=== PATIENT | male | born 1960 | race Caucasian/White ===

== ENCOUNTER 2019-05-20 14:14 | Emergency (ER) | payer BC ==
[2019-05-20 14:45] LABS: Urine Blood 3+ (NEG); Urine Glucose NEGATIVE (NEG); Urine Protein 2+ (NEG); Urine Specific Gravity 1.025 (1.005-1.030)
[2019-05-20 14:47] LABS: Absolute Lymphocytes (CBC) 2.2 K/uL (0.7-4.9); Basophils % 1.1 % (0-1.3); Hematocrit 43.8 % (39.6-49.0); Lymphocytes % 25.5 % (15.3-44.8); MPV 7.4 fL (7.6-11.3); RBC Red Blood Cell Count 4.67 M/uL (4.33-5.43)
[2019-05-20] MEDS ORDERED: ONDANSETRON 4 MG/2 ML VIAL ONE (14:49)
[2019-05-20] MEDS ORDERED: MORPHINE 4 MG/ML SYR ONE (14:49)
[2019-05-20 14:56] LABS: Potassium 3.9 mmol/L (3.5-5.1)
--- NOTE | 2019-05-20 15:17 | RAD REPORT ---
EXAM DESCRIPTION: CT - Stone Protocol - 05/20/2019 2:49 pm CLINICAL HISTORY: Back pain, hematuria COMPARISON: None. TECHNIQUE: Axial 5 mm thick images were obtained without oral or IV contrast. The icumx-qn-soxo span s the entirety of the system partially obscuring uppermost abdomen and lung bases. All CT scans are performed using dose optimization technique as appropriate and may include automated exposure control or mA/KV adjustment according to patient size. FINDINGS: Wffa-fm-[id number] left-sided hydronephrosis is present secondary to a 6 x 3 mm stone at the left UVJ. Stone projects into the bladder lumen. Left kidney is mildly edematous. No other obstructi ng or nonobstructing calculi. No suspicious renal masses. Isodense masses and pyelonephritis are not excluded on a stone protocol CT scan. Urinary bladder is contracted. No bladder calculus. No signific ant adrenal finding. Imaged portions of the liver, spleen and pancreas show no suspicious findings on non-contrast imaging . No gallbladder or biliary tree abnormality identified. No suspicious bowel findings. Diverticulosis is present without diverticulitis. Bilateral fat filled inguinal hernias are present. Postsurgical hernia changes noted in the periumbil ical region. No free air, free fluid or inflammatory stranding. No significant bony abnormality. IMPRESSION: Msby-nu-xygwitfs left-sided hydronephrosis secondary to a 6 x 3 stone at the left UVJ. S tone projects partway into the bladder lumen. Isodense masses and pyelonephritis are not excluded on stone protocol technique.
[2019-05-20 15:21] LABS: Urine Bacteria 20-50 /HPF (NONE SEEN); Urine Culture Reflex Order REFLEXED; Urine Mucus SLIGHT /HPF (NONE SEEN); Urine RBC LOADED /HPF (NONE SEEN)
[2019-05-20 15:35] LABS: Calcium Oxalate Crystals- Ur FEW (NONE SEEN)
[2019-05-20] MEDS ORDERED: MAGNESIUM SULFATE 1 gm IVPB 1 GM/100 ML BAG IV ONE (15:51)
[2019-05-20] MEDS ORDERED: TAMSULOSIN 0.4 MG SR CAP ONE (15:51)
[2019-05-20] MEDS ORDERED: KETOROLAC 30 MG/ML INJ ONE (15:53)
--- NOTE | 2019-05-20 16:01 | ER ---
Nurse's Notes [facility] Name: Diony Ventura Age: 58 yrs Sex: Male : 1960 Arrival Date: 05/20/2019 Time: 14:17 Bed 13 Private MD: Diagnosis: Calculus of kidney and ureter Presentation: 05/20 14:20 Presenting complaint: Patient states: Right mid back pain, blood in urine, and hb difficulty urinating x 3 days. Denies N/V/fever. Hx of kidney stones. Transition of care: patient was not received from another setting of care. Onset of symptoms was May 17, 2019. Risk Assessment: Do you want to hurt yourself or someone else? Patient reports no desire to harm self or others. Care prior to arrival: None. 14:20 Method Of Arrival: Ambulatory hb 14:20 Acuity: CARROLL 3 hb 16:50 Initial Sepsis Screen: Does the patient meet any 2 criteria? No. Patient's initial sg sepsis screen is negative. Does the patient have a suspected source of infection? No. Patient's initial sepsis screen is negative. Historical: - Allergies: 14:20 No Known Allergies; hb - Home Meds: 14:23 Vytorin 10-40 10-40 mg oral tab [Active]; Xarelto oral oral [Active]; hb - PMHx: 14:23 DVT; Kidney stones; hb - PSHx: 14:23 Lithotripsy; hb - Immunization history:: Adult Immunizations up to date. - Social history:: Smoking status: Patient/guardian denies using tobacco. - Ebola Screening: : No symptoms or risks identified at this time. Screenin:49 Abuse screen: Denies threats or abuse. Denies injuries from another. Nutritional sg screening: No deficits noted. Tuberculosis screening: No symptoms or risk factors identified. Never had TB. Fall Risk None identified. Assessment: 16:49 Reassessment: Patient appears in no apparent distress at this time. awaiting IV sg magnesium to continue to infuse to prior discharge to home. Vital Signs: 14:24 BP 158 / 97; Pulse 59; Resp 20; Temp 98.4; Pulse Ox 97% on R/A; Weight 108.86 kg; hb Height 6 ft. (182.88 cm); Pain 10/10; 14:24 Body Mass Index 32.55 (108.86 kg, 182.88 cm) hb ED Course: 14:17 Patient arrived in ED. mr 14:20 Arm band placed on. hb 14:22 Triage completed. hb 14:29 Bianca Estrada FNP-C [facility]. kb 14:29 Austyn Joe MD is Attending Physician. kb 14:30 Initial lab(s) drawn, by me, sent to lab. Inserted saline lock: 20 gauge in right sg antecubital area, using aseptic technique. Blood collected. 14:38 Aryan Nina, RN is Primary Nurse. sg 14:58 CT Stone Protocol In Process Unspecified. EDMS 16:50 Patient has correct armband on for positive identification. Bed in low position. Call sg light in reach. Side rails up X2. Pulse ox on. NIBP on. Warm blanket given. Head of bed elevated. 17:00 No provider procedures requiring assistance completed. IV discontinued, intact, sg bleeding controlled, No redness/swelling at site. Pressure dressing applied. Administered Medications: 15:00 Drug: morphine 4 mg Route: IVP; Site: right antecubital; sg 15:34 Follow up: Response: No adverse reaction; Pain is decreased sg 15:00 Drug: Zofran 4 mg Route: IVP; Site: right antecubital; sg 15:30 Follow up: Response: No adverse reaction; Nausea is decreased sg 15:50 Drug: Magnesium Sulfate 1 grams Route: IVPB; Infused Over: 30 mins; Site: right sg antecubital; 15:50 Drug: Flomax 0.4 mg Route: PO; sg 15:50 Drug: TORadol - Ketorolac 15 mg Route: IVP; Site: right antecubital; sg Outcome: 16:00 Discharge ordered by . kb 17:00 Discharged to home ambulatory. sg 17:00 Condition: improved 17:00 Discharge instructions given to patient, Instructed on discharge instructions, follow up and referral plans. medication usage, safety practices, Demonstrated understanding of instructions, follow-up care, medications, Prescriptions given X 4. 17:11 Patient left the ED. sg Signatures: Dispatcher [employer] EDNM Bianca Estrada FNP-C FNP-Ckb Gay, Steven, RN RN Gracy Brumfield mr Michelle Ontiveros RN RN Corrections: (The following items were deleted from the chart) 15:34 15:30 Response: No adverse reaction; Pain is unchanged, physician notified sg sg
--- NOTE | 2019-05-20 16:01 | EDPHYS ---
Physician Documentation [facility] Name: Diony Ventura Age: 58 yrs Sex: Male : 1960 Arrival Date: 05/20/2019 Time: 14:17 Bed 13 Private MD: ED Physician Austyn Joe HPI: 05/20 15:52 This 58 yrs old Male presents to ER via Ambulatory with complaints of kb Possible Kidney Stone. 15:53 The patient complains of pain in the left flank. The pain radiates to the left kb testicle. Onset: The symptoms/episode began/occurred 3 day(s) ago, and became worse and became persistent. Modifying factors: The symptoms are alleviated by nothing. the symptoms are aggravated by nothing. Associated signs and symptoms: Pertinent positives: hematuria. Severity of pain: At its worst the pain was moderate in the emergency department the pain is unchanged. The patient has not experienced similar symptoms in the past. The patient has not recently seen a physician. Historical: - Allergies: 14:20 No Known Allergies; hb - Home Meds: 14:23 Vytorin 10-40 10-40 mg oral tab [Active]; Xarelto oral oral [Active]; hb - PMHx: 14:23 DVT; Kidney stones; hb - PSHx: 14:23 Lithotripsy; hb - Immunization history:: Adult Immunizations up to date. - Social history:: Smoking status: Patient/guardian denies using tobacco. - Ebola Screening: : No symptoms or risks identified at this time. ROS: 15:51 Constitutional: Negative for fever, chills, and weight loss, Neck: Negative for injury, kb pain, and swelling, Cardiovascular: Negative for chest pain, palpitations, and edema, Respiratory: Negative for shortness of breath, cough, wheezing, and pleuritic chest pain, Abdomen/GI: Negative for abdominal pain, nausea, vomiting, diarrhea, and constipation, : Negative for injury, bleeding, discharge, and swelling, MS/Extremity: Negative for injury and deformity, Skin: Negative for injury, rash, and discoloration, Neuro: Negative for headache, weakness, numbness, tingling, and seizure. 15:51 Back: Positive for flank pain, on the left, radiated pain, of the left flank. Exam: 15:51 Constitutional: This is a well developed, well nourished patient who is awake, alert, kb and in no acute distress. Head/Face: Normocephalic, atraumatic. Neck: Trachea midline, no thyromegaly or masses palpated, and no cervical lymphadenopathy. Supple, full range of motion without nuchal rigidity, or vertebral point tenderness. No Meningismus. Chest/axilla: Normal chest wall appearance and motion. Nontender with no deformity. No lesions are appreciated. Cardiovascular: Regular rate and rhythm with a normal S1 and S2. No gallops, murmurs, or rubs. Normal PMI, no JVD. No pulse deficits. Respiratory: Lungs have equal breath sounds bilaterally, clear to auscultation and percussion. No rales, rhonchi or wheezes noted. No increased work of breathing, no retractions or nasal flaring. Abdomen/GI: Soft, non-tender, with normal bowel sounds. No distension or tympany. No guarding or rebound. No evidence of tenderness throughout. Skin: Warm, dry with normal turgor. Normal color with no rashes, no lesions, and no evidence of cellulitis. MS/ Extremity: Pulses equal, no cyanosis. Neurovascular intact. Full, normal range of motion. Neuro: Awake and alert, GCS 15, oriented to person, place, time, and situation. Cranial nerves II-XII grossly intact. Motor strength 5/5 in all extremities. Sensory grossly intact. Cerebellar exam normal. Normal gait. 15:51 Back: CVA tenderness, that is moderate, is noted on the left. Vital Signs: 14:24 BP 158 / 97; Pulse 59; Resp 20; Temp 98.4; Pulse Ox 97% on R/A; Weight 108.86 kg; hb Height 6 ft. (182.88 cm); Pain 10/10; 14:24 Body Mass Index 32.55 (108.86 kg, 182.88 cm) hb MDM: 14:29 Patient medically screened. kb 15:50 Data reviewed: vital signs, nurses notes. Data interpreted: Pulse oximetry: on room air kb is 97 %. Interpretation: normal. Counseling: I had a detailed discussion with the patient and/or guardian regarding: the historical points, exam findings, and any diagnostic results supporting the discharge/admit diagnosis, lab results, radiology results, the need for outpatient follow up, a urologist, to return to the emergency department if symptoms worsen or persist or if there are any questions or concerns that arise at home. ED course: Pt has follow up with Urologist in [place] on . Will keep appt with him and return if needed. 05/20 14:30 Order name: Urine Microscopic Only; Complete Time: 15:37 kb 05/20 14:30 Order name: CBC with Diff; Complete Time: 14:50 kb 05/20 14:29 Order name: CT Stone Protocol; Complete Time: 15:28 kb 05/20 14:30 Order name: Basic Metabolic Panel; Complete Time: 14:58 kb 05/20 14:34 Order name: Urine Dipstick--Ancillary (enter results); Complete Time: 14:50 bd 05/20 15:26 Order name: Urine Culture EDMS 05/20 14:30 Order name: Urine Dipstick-Ancillary (obtain specimen); Complete Time: 14:42 kb 05/20 14:30 Order name: IV Start; Complete Time: 14:38 kb Administered Medications: 15:00 Drug: morphine 4 mg Route: IVP; Site: right antecubital; sg 15:34 Follow up: Response: No adverse reaction; Pain is decreased sg 15:00 Drug: Zofran 4 mg Route: IVP; Site: right antecubital; sg 15:30 Follow up: Response: No adverse reaction; Nausea is decreased sg 15:50 Drug: Magnesium Sulfate 1 grams Route: IVPB; Infused Over: 30 mins; Site: right sg antecubital; 15:50 Drug: Flomax 0.4 mg Route: PO; sg 15:50 Drug: TORadol - Ketorolac 15 mg Route: IVP; Site: right antecubital; sg Disposition: 05/21 07:17 Co-signature as Attending Physician, Austyn Joe MD I agree with the assessment and kdr plan of care. Disposition: 05/20/19 16:00 Discharged to Home. Impression: Calculus of kidney and ureter. - Condition is Stable. - Discharge Instructions: Kidney Stones, Xuir-va-[id number], Dietary Guidelines to Help Prevent Kidney Stones. - Prescriptions for Tylenol- Codeine #3 300-30 mg Oral Tablet - take 2 tablets by ORAL route every 6 hours As needed; 16 tablet. Zofran 4 mg Oral Tablet - take 1 tablet by ORAL route every 6 hours As needed; 20 tablet. Flomax 0.4 mg Oral Capsule, Sust. Release 24 hr - take 1 capsule by ORAL route once daily; 10 capsule. Diclofenac Sodium 75 mg Oral Tablet, Delayed Release (E.C.) - take 1 tablet by ORAL route 2 times per day As needed; 30 tablet. Macrobid 100 mg Oral Capsule - take 1 capsule by ORAL route every 12 hours for 7 days; 14 capsule. - Medication Reconciliation Form, Thank You Letter, Antibiotic Education, Prescription Opioid Use form. - Follow up: Emergency Department; When: As needed; Reason: Worsening of condition. Follow up: Private Physician; When: 2 - 3 days; Reason: Recheck today's complaints, Continuance of care, Re-evaluation by your physician. Signatures: Dispatcher [employer] EDMS Bianca Estrada, [employer]-Aryan Roy RN RN sg Austyn Joe MD MD [facility] Michelle Ontiveros RN RN Corrections: (The following items were deleted from the chart) 05/20 17:11 16:00 05/20/2019 16:00 Discharged to Home. Impression: Calculus of kidney and ureter. sg Condition is Stable. Forms are Medication Reconciliation Form, Thank You Letter, Antibiotic Education, Prescription Opioid Use. Follow up: Emergency Department; When: As needed; Reason: Worsening of condition. Follow up: Private Physician; When: 2 - 3 days; Reason: Recheck today's complaints, Continuance of care, Re-evaluation by your physician. kb
[2019-05-20 18:24] VITALS: BP 158/97; TEMP 98.4; O2SAT 97
== END 2019-05-20 17:11 | disposition home or self-care (01) ==
LOC: ER 14:14
DX: N20.2 Calculus of kidney with calculus of ureter (principal); Z79.01 Long term (current) use of anticoagulants; Z86.718 Personal history of other venous thrombosis and embolism; Z87.442 Personal history of urinary calculi
CPT/HCPCS: 87088; 85025; 80048; 36415; 76377; 74176; 96375; 96374; 99284; J3475; J2405; 81003; 81015; 87086